=== PATIENT | female | born 1980 | race American Indian/Alaskan Native ===

== ENCOUNTER 2020-11-04 12:00 | Emergency (ER) | payer MEDICAID, SELFPAY ==
[2020-11-04 12:02] VITALS: BP 129/89; PULSE 93; RESP 16; TEMP 36.6; O2SAT 98; BMI 23.6
--- NOTE | 2020-11-04 12:12 | HMH.EDEAR ---
ED Disposition Clinical Impression: Otitis externa Qualifiers: Otitis externa type: diffuse Chronicity: acute Laterality: right Qualified Code(s): H60.311 - Diffuse otitis externa, right ear Otitis media Qualifiers: Otitis media type: suppurative Chronicity: acute Laterality: right Recurrence: non-recurrent Spontaneous tympanic membrane rupture: without spontaneous rupture Qualified Code(s): H66.001 - Acute suppurative otitis media without spontaneous rupture of ear drum, right ear Disposition: Home, Self-Care Condition on Discharge: Good Instructions: DI for Middle Ear Infection-Adult Prescriptions: Amoxicillin/Potassium Clav [Amox-Clav 875-125 mg Tablet] 1 tab PO BID #14 tab Transmission Status: Pending to [facility] Ciprofloxacin HCl/Dexameth [Cipro 0.3%-Dex 0.1% Otic Susp 7.5mL] 4 drops EAR-RIGHT BID 10 Days #7.5 drops.susp Transmission Status: Pending to [facility] Ibuprofen [Ibuprofen 800mg Tablet] 800 mg PO TIDP PRN #20 tab PRN Reason: Moderate Pain Transmission Status: Pending to [facility] Referrals: ProviderNapoleon MD [Primary Care Provider] - Marilia Tejada MD [Consulting Physician] - - Critical Care Critical Care Time: No Attestation: On , the high probability of a clinically significant, sudden or life threatening deterioration of the following system(s) required my full and direct attention, intervention and personal management. The time I documented below is in addition to time spent performing reported procedures but includes the following listed in this critical care notation. Medical Decision Making - Medical Records Medical records reviewed: Yes: I reviewed the patient's medical records. - [place] Inquiry Pt receiving controlled substance: No Vital Signs: 11/04/20 12:02 Temperature 98 F Temperature Source Oral Pulse Rate [Radial] 93 H Respiratory Rate 16 Blood Pressure [Right Arm] 129/89 Blood Pressure Mean [Right Arm] 102 Blood Pressure Position [Right Arm] Sitting 02 Sat by Pulse Oximetry 98 Oxygen Delivery Method Room Air Medical Decision Narrative: 40-year-old female presented to the emergency department with right ear pain. Findings consistent with acute otitis externa and media. Patient will be placed on dual antibiotics. Needs to follow-up with PCP. Given strict return precautions. Verbalized understanding. Ear HPI - General Chief complaint: Ear Stated complaint: Right ear pain Time Seen by Provider: 11/04/20 12:10 Mode of Arrival: Ambulatory Limitations: No Limitations Description of Symptoms (Recalled from ER Triage Doc. by RN): TO ED PER [facility] WITH C/O RT EAR PAIN X 4 DAYS. - History of Present Illness HPI Narrative: This is a 40-year-old female presented to the emergency department with right ear discomfort. Patient has had this for the last 4 days. States that she noted some discharge from her ear and its been getting progressively worse since then. She denies any inoculation into the ear. She has not been in any bodies of water for swimming. She has been complaining of some throbbing in that ear as well. She denies any fevers or chills. No trauma. She does not have any sore throat, difficulty swallowing or neck pain. No meningismus. Denies any chest pain or shortness of breath. No abdominal pain or vomiting. - Related Data Previous Rx's Medication Instructions Recorded Amoxicillin/Potassium Clav 1 tab PO BID #14 tab 11/04/20 [Amox-Clav 875-125 mg Tablet] Ciprofloxacin HCl/Dexameth [Cipro 4 drops EAR-RIGHT BID 10 Days #7.5 11/04/20 0.3%-Dex 0.1% Otic Susp 7.5mL] drops.susp Ibuprofen [Ibuprofen 800mg 800 mg PO TIDP PRN #20 tab 11/04/20 Tablet] Allergies Allergy/AdvReac Type Severity Reaction Status Date / Time No Known Allergies Allergy Verified 05/21/19 01:11 [facility] History - Hepatitis A Screen Drug use history?: No High risk sexual behaviors?: No History of sexual
[2020-11-04 12:30] VITALS: BP 123/74; PULSE 78; RESP 16; TEMP 36.6; O2SAT 98
== END 2020-11-04 12:31 | disposition home or self-care (01) ==
LOC: ER 12:27
PROVIDERS: Emergency Provider Emergency Medicine
DX: H60.311 Diffuse otitis externa, right ear (principal); H66.001 Acute suppurative otitis media without spontaneous rupture of ear drum, right ear
CPT/HCPCS: 99281